=== PATIENT | female | born 1965 | race Caucasian/White ===

== ENCOUNTER 2016-07-08 09:33 | Emergency (ER) | payer OTHER ==
[~2016-07-08] VITALS: Ht 154.9 cm; Wt 68.0 kg
[2016-07-08 10:07] VITALS: BP 126/91
== END 2016-07-08 10:08 | disposition home or self-care (01) ==
LOC: ER 09:37
DX: M79.605 Pain in left leg (principal)
CPT/HCPCS: 99283; A4606; Z7610

== ENCOUNTER 2017-07-05 01:34 | Emergency (ER) | payer OTHER ==
[~2017-07-05] VITALS: Ht 167.6 cm; Wt 63.5 kg
--- NOTE | 2017-07-05 01:34 | NUR ---
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 NO SOB OR PAIN C/O WHEN ASSESSED. VSS NAD. ITCHING TRUNK/BACK/ARMS/LEGS CURRENTLY. WILL CONTINUE TO MONITOR FOR ANY CHANGES DURING THE SHIFT.
[2017-07-05] MEDS ORDERED: FAMOTIDINE (20 MG) 20 MG TABLET ONE (02:05)
[2017-07-05] MEDS ORDERED: DEXAMETHASONE SOD PHOSPHATE 10 MG/ML VIAL ONE (02:05)
[2017-07-05] MEDS ORDERED: diphenhydrAMINE HCL 50 MG/ML VIAL ONE (02:05)
[2017-07-05] MEDS ORDERED: FAMOTIDINE (20 MG) 20 MG TABLET PO ONE (02:30)
[2017-07-05] MEDS ORDERED: DEXAMETHASONE SOD PHOSPHATE 4 MG/ML VIAL IM ONE (02:30)
[2017-07-05] MEDS ORDERED: diphenhydrAMINE HCL 50 MG/ML VIAL IM ONE (02:30)
[2017-07-05 02:54] VITALS: BP 120/73
== END 2017-07-05 02:55 | disposition home or self-care (01) ==
LOC: ER 01:35
DX: L50.9 Urticaria, unspecified (principal)
CPT/HCPCS: A4606; J1100; J1200; Z7610

== ENCOUNTER 2018-07-10 18:58 | Emergency (ER) | payer OTHER ==
[~2018-07-10] VITALS: Ht 152.4 cm; Wt 68.0 kg
--- NOTE | 2018-07-10 19:26 | NUR ---
URINE COLLECTED AND SENT TO LAB
--- NOTE | 2018-07-10 19:30 | NUR ---
PT BIBSELF COMPLAINING OF ABD X 4 DAYS. PT AXO4. RESPIRATIONS EVEN AND UNLABORED. PT PUT ON THE DEGREASING SOLUTION MIXER AND PULSE OX. PT AMBULATED WITH STEADY GAIT TO BED 7. PENDING EVAL FROM MIRIAM DUMONT.
[2018-07-10] MEDS ORDERED: ONDANSETRON HCL/PF 4 MG/2 ML VIAL IVP ONE (20:00)
[2018-07-10] MEDS ORDERED: MORPHINE SULFATE INJ 2 MG/ML DISP.SYRIN IV ONE (20:00)
[2018-07-10 20:03] LABS: BASOPHILS # (AUTO) 0.1 /CMM (0.0-0.2); BASOPHILS % (AUTO) 1.7 % (0.0-2.0); EOSINOPHILS % (AUTO) 0.3 % (0.0-6.0); HEMATOCRIT 39 % (33-45); HEMOGLOBIN 12.8 g/dL (11.5-14.8); LYMPHOCYTES # (AUTO) 0.7 /CMM (0.8-4.8); LYMPHOCYTES % (AUTO) 14.4 % (20.0-44.0); MEAN CORPUSCULAR HGB CONC 33 g/dl (31.0-36.0); MEAN CORPUSCULAR VOLUME 87 fL (82-100); MONOCYTES # (AUTO) 0.3 /CMM (0.1-1.30); MONOCYTES % (AUTO) 6.2 % (2.0-12.0); NEUTROPHILS # (AUTO) 3.9 /CMM (1.8-8.9); NEUTROPHILS % (AUTO) 77.4 % (43.0-81.0); PLATELET COUNT (AUTO) 195 /CMM (150-450); RED BLOOD CELL COUNT(AUTO) 4.46 MIL/uL (4.0-5.2)
[2018-07-10 20:05] LABS: APPEARANCE,URINE Clear (CLEAR); BILIRUBIN,URINE Negative (NEGATIVE); BLOOD, URINE Trace-intact Ery/uL (NEGATIVE); COLOR,URINE Yellow (YELLOW); KETONES,URINE Negative (NEGATIVE); LEUKOCYTE ESTERASE ,URINE Trace (NEGATIVE); NITRITE, URINE Negative (NEGATIVE); PROTEIN,URINE Negative (NEGATIVE); UGLUCOSE Negative (NEGATIVE); UROBILINOGEN,URINE 0.2 EU/dL (0.2)
[2018-07-10] MEDS ORDERED: MORPHINE SULFATE INJ 4 MG/ML DISP.SYRIN ONE (20:07)
[2018-07-10] MEDS ORDERED: ONDANSETRON HCL/PF 4 MG/2 ML VIAL ONE (20:07)
[2018-07-10 20:17] LABS: ALANINE AMINOTRANSFERASE 38 U/L (12-78); ALBUMIN 3.6 g/dL (3.4-5.0); ALKALINE PHOSPHATASE 111 U/L (46-116); ASPARTATE AMINOTRANSFERASE 28 U/L (15-37); BILIRUBIN,DIRECT 0.1 mg/dL (0.0-0.2); BILIRUBIN,TOTAL 0.4 mg/dL (0.2-1.0); CALCIUM, SERUM 8.8 mg/dL (8.5-10.1); CARBON DIOXIDE 28 mmol/L (21-32); CHLORIDE 102 mmol/L (98-107); CREATININE 0.7 mg/dL (0.6-1.3); GLUCOSE 98 mg/dL (74-106); LIPASE 114 U/L (73-393); POTASSIUM 3.5 mmol/L (3.5-5.1); SODIUM SERUM 139 mmol/L (136-145); TOTAL PROTEIN, SERUM 7.4 g/dL (6.4-8.2); UREA NITROGEN, BLOOD 11 mg/dL (7-18)
--- NOTE | 2018-07-10 20:20 | NUR ---
RPatient is resting comfortably in bed with eyes closed. Easily aroused. VSS. NAD, NOTED.
[2018-07-10 20:29] LABS: BACTERIA,URINE Few /HPF (None Seen); RBC,URINE 2-3/HPF /HPF (0-2); SQUAMOUS EPITHELIAL CELL,UR Moderate /HPF (None Seen); URINE AMORPHOUS URATE Few /HPF (None Seen)
--- NOTE | 2018-07-10 21:31 | NUR ---
Patient discharged to home in stable condition. Written and verbal after care instructions given. Patient verbalizes understanding of instruction.IV removed. Catheter intact and site benign. Pressure and 4x4 applied to site. No bleeding noted. PT AMBULATORY WITH STEADY GAIT.
[2018-07-10 21:32] VITALS: BP 115/78
== END 2018-07-10 21:34 | disposition home or self-care (01) ==
LOC: ER 19:05
DX: M54.5 Low back pain (principal); R10.84 Generalized abdominal pain; Z90.89 Acquired absence of other organs
CPT/HCPCS: 36415; 74176; 80048; 80076; 81001; 83690; 84484; 84703; 85025; 85730; 96374; 96375; 99284; A4606; J2270; J2405; 81000-TC

== ENCOUNTER 2019-05-03 18:04 | Emergency (ER) | payer OTHER ==
[~2019-05-03] VITALS: Ht 165.1 cm; Wt 68.0 kg
[2019-05-03 19:07] LABS: APPEARANCE,URINE Slightly Cloudy (CLEAR); BILIRUBIN,URINE Negative (NEGATIVE); BLOOD, URINE Moderate Ery/uL (NEGATIVE); COLOR,URINE Yellow (YELLOW); KETONES,URINE Negative (NEGATIVE); LEUKOCYTE ESTERASE ,URINE Moderate (NEGATIVE); NITRITE, URINE Negative (NEGATIVE); PH,URINE 7.5 (5.0-8.0); PROTEIN,URINE Negative (NEGATIVE); UGLUCOSE Negative (NEGATIVE); UROBILINOGEN,URINE 0.2 EU/dL (0.2)
[2019-05-03 19:15] LABS: BACTERIA,URINE Many /HPF (None Seen); SQUAMOUS EPITHELIAL CELL,UR Moderate /HPF (None Seen); WBC,URINE 21-50 /HPF (0-3)
[2019-05-03] MEDS ORDERED: PHENAZOPYRIDINE HCL 200 MG TABLET PO ONE (19:30)
[2019-05-03] MEDS ORDERED: CEPHALEXIN MONOHYDRATE 500 MG CAPSULE PO ONE ×2 (19:30→19:33)
[2019-05-03] MEDS ORDERED: PHENAZOPYRIDINE HCL 200 MG TABLET ONE (19:33)
--- NOTE | 2019-05-03 19:37 | NUR ---
BIBS TO ER CHAIR. AAOX4. NO RESP DISTRESS. AMBULATORY. C/O PAINFUL URINATION X 4 DAYS. AT WAS AT [facility] FOR EVAL. MEDICATED ORDERED
[2019-05-03 19:40] VITALS: BP 135/72
== END 2019-05-03 20:06 | disposition home or self-care (01) ==
LOC: ER 18:05
DX: N39.0 Urinary tract infection, site not specified (principal); Z90.89 Acquired absence of other organs
CPT/HCPCS: 81000-TC; 84703-TC; 87086-TC; 87186-TC

== ENCOUNTER 2020-02-26 10:03 | Emergency (ER) | payer OTHER ==
[~2020-02-26] VITALS: Ht 165.1 cm; Wt 68.0 kg
[2020-02-26 10:10] VITALS: BP 120/62
--- NOTE | 2020-02-26 10:30 | NUR ---
influenza swab and covid specimen obtained and sent to lab.
--- NOTE | 2020-02-26 10:34 | NUR ---
Patient discharged to home in stable condition. Written and verbal after care instructions given. Patient verbalizes understanding of instruction.
== END 2020-02-26 10:36 | disposition home or self-care (01) ==
LOC: ER 10:09
DX: R51.9 Headache, unspecified (principal); Z20.828 Contact with and (suspected) exposure to other viral communicable diseases
CPT/HCPCS: 87426; 87804; 99283; C9803

== ENCOUNTER 2020-02-26 19:19 | Emergency (ER) | payer OTHER ==
[~2020-02-26] VITALS: Ht 165.1 cm; Wt 68.0 kg
--- NOTE | 2020-02-26 19:20 | NUR ---
PT CAME TO THE ER C/O QUISPE, BODY PAIN, AND FEVER X 3 DAYS. SEEN HERE TODAY IN THE ER. RAPID COVID NEGATIVE. PT AAOX4, VSS, RESPIRATIONS EVEN AND UNLABORED ON RA W/ NAD NOTED. 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
[2020-02-26] MEDS ORDERED: KETOROLAC TROMETHAMINE INJ 30 MG/ML VIAL IV ONE (19:30)
[2020-02-26] MEDS ORDERED: IV NS 0.9% 1,000 ML BAG IV ONE (19:30)
[2020-02-26] MEDS ORDERED: KETOROLAC TROMETHAMINE 15 MG/ML VIAL ONE (19:33)
[2020-02-26 19:42] LABS: BASOPHILS % (AUTO) 0.3 % (0.0-2.0); EOSINOPHILS % (AUTO) 0.2 % (0.0-6.0); HEMATOCRIT 43 % (33-45); HEMOGLOBIN 14.3 g/dL (11.5-14.8); LYMPHOCYTES % (AUTO) 12.4 % (20.0-44.0); MEAN CORPUSCULAR HGB CONC 33 g/dl (31.0-36.0); MEAN CORPUSCULAR VOLUME 94 fL (82-100); MONOCYTES # (AUTO) 0.3 /CMM (0.1-1.30); MONOCYTES % (AUTO) 3.5 % (2.0-12.0); NEUTROPHILS # (AUTO) 6.6 /CMM (1.8-8.9); NEUTROPHILS % (AUTO) 83.6 % (43.0-81.0); PLATELET COUNT (AUTO) 206 /CMM (150-450); WHITE BLOOD COUNT (AUTO) 7.9 K/uL (4.3-11.0)
[2020-02-26 19:50] LABS: CALCIUM, SERUM 9.1 mg/dL (8.5-10.1); CREATININE 0.9 mg/dL (0.6-1.3); POTASSIUM 3.3 mmol/L (3.5-5.1)
[2020-02-26 19:53] LABS: APPEARANCE,URINE Clear (CLEAR); BILIRUBIN,URINE Negative (NEGATIVE); BLOOD, URINE Trace-lysed Ery/uL (NEGATIVE); COLOR,URINE Yellow (YELLOW); LEUKOCYTE ESTERASE ,URINE Trace (NEGATIVE); NITRITE, URINE Negative (NEGATIVE); PH,URINE 5.5 (5.0-8.0); PROTEIN,URINE Negative (NEGATIVE); UGLUCOSE Negative (NEGATIVE); UROBILINOGEN,URINE 0.2 EU/dL (0.2)
[2020-02-26 19:55] LABS: ALBUMIN 3.9 g/dL (3.4-5.0); BILIRUBIN,DIRECT 0.1 mg/dL (0.0-0.2); BILIRUBIN,TOTAL 0.8 mg/dL (0.2-1.0); TOTAL PROTEIN, SERUM 8.3 g/dL (6.4-8.2)
--- NOTE | 2020-02-26 20:00 | NUR ---
PT TAKEN TO RADIOLOGY FOR CT
[2020-02-26 20:07] LABS: BACTERIA,URINE Few /HPF (None Seen); SQUAMOUS EPITHELIAL CELL,UR Few /HPF (None Seen)
--- NOTE | 2020-02-26 20:10 | NUR ---
PT BACK FROM CT
--- NOTE | 2020-02-26 20:12 | NUR ---
DR REY AT BEDSIDE
--- NOTE | 2020-02-26 20:16 | NUR ---
SENT CT IMAGES TO DR HIRSCH, PAGED BADR
[2020-02-26] MEDS ORDERED: HYDROMORPHONE 1 MG/1 ML DISP.SYRIN ONE (20:19)
[2020-02-26] MEDS ORDERED: ONDANSETRON HCL/PF 4 MG/2 ML VIAL ONE (20:19)
--- NOTE | 2020-02-26 20:22 | NUR ---
MIRIAM DUMONT TALKING TO DR. HIRSCH REGARDING PT.
--- NOTE | 2020-02-26 20:25 | NUR ---
RECEIVED CALL FROM [facility] REGARDING TRANSFER OF PATIENT, FAXED FACESHEET AND CLINICALS TO [phone], STATES WILL CALL BACK WITH ETA FOR EMERGENCY TRANSPORT
--- NOTE | 2020-02-26 20:26 | NUR ---
[facility]
[2020-02-26] MEDS ORDERED: ONDANSETRON HCL/PF 4 MG/2 ML VIAL IV ONE (20:30)
[2020-02-26] MEDS ORDERED: HYDROMORPHONE 1 MG/1 ML DISP.SYRIN IV ONE (20:30)
--- NOTE | 2020-02-26 20:45 | NUR ---
PT'S CHRISTINA DALTON
--- NOTE | 2020-02-26 20:47 | NUR ---
MIRIAM DUMONT SPOKE TO DR. TILLMAN REGARDING PT TRANSFER TO [facility].
--- NOTE | 2020-02-26 21:11 | NUR ---
PT ACCEPTED AT [facility] ACCEPTING MD HALL/ DR. HIRSCH ROOM# 4522-4 EXT [id number] [facility] ETA 1HR
--- NOTE | 2020-02-26 21:22 | NUR ---
REPORT GIVEN TO NIKITA KRISHNAN [facility] FOR [facility]
[2020-02-26 22:05] VITALS: BP 117/59
--- NOTE | 2020-02-26 22:15 | NUR ---
PT TRANSFERRED TO [facility] IN STABLE CONDITION. ICU [facility] UPDATED REGARDING TRANSFER
== END 2020-02-26 22:23 | disposition short-term general hospital (02) ==
LOC: ER 19:26
DX: I62.9 Nontraumatic intracranial hemorrhage, unspecified (principal); Z90.89 Acquired absence of other organs
CPT/HCPCS: 36415; 70450; 80048; 80076; 81001; 83690; 85025; 85610; 96361; 96374; 96375; 99291; J1170; J1885; J2405; J7030; 81000-TC

== ENCOUNTER 2023-04-20 13:47 | Emergency (ER) | payer OTHER ==
[~2023-04-20] VITALS: Ht 152.4 cm; Wt 68.0 kg
[2023-04-20 14:22] VITALS: BP 110/62; TEMP 98.2
[2023-04-20] MEDS ORDERED: ACETAMINOPHEN 325 MG TABLET PO ONE (15:30)
[2023-04-20] MEDS ORDERED: ACETAMINOPHEN ES 500 MG TABLET ONE (15:40)
[2023-04-20] MEDS ORDERED: CYCL10TA9 PO (15:44)
[2023-04-20 16:22] VITALS: O2SAT 98
== END 2023-04-20 16:24 | disposition home or self-care (01) ==
LOC: ER 13:51
DX: M54.12 Radiculopathy, cervical region (principal); M62.838 Other muscle spasm; Z90.89 Acquired absence of other organs
CPT/HCPCS: 72050-TC; 73030-TC